=== PATIENT | male | born 1960 | race Caucasian/White ===

== ENCOUNTER 2020-10-13 16:10 | Emergency (ER) | payer OTHER, SELFPAY ==
[2020-10-13 16:14] VITALS: BP 137/83; PULSE 83; RESP 16; TEMP 36.7; O2SAT 97; BMI 33.9
[2020-10-13] MEDS: cephALEXin 500 MG CAPSULE PO (16:44)
--- NOTE | 2020-10-13 17:05 | ED.SKABFB ---
HPI - Skin/Abscess/Foreign Bdy General Chief complaint: Skin/Abscess/Foreign Body Stated complaint: abscess Time Seen by Provider: 10/13/20 16:33 History of Present Illness HPI narrative: Patient complains of red bump on his forehead which is mildly painful when he touches it, no fever no chills no other rash Related Data Previous Rx's Medication Instructions Recorded cephalexin 500 mg tablet 500 mg PO QID 7 Days #28 tab 10/13/20 Allergies Allergy/AdvReac Type Severity Reaction Status Date / Time benzonatate Allergy Unknown Verified 10/13/20 16:20 [From Tessalon Perles] clarithromycin [From Biaxin] Allergy Itching Verified 10/13/20 16:20 latex Allergy Unknown Verified 10/13/20 16:20 Review of Systems Review of Systems: Positive for small red swollen area on the scalp Negatives no fever no chills no dizziness no weakness no headache no ear pain no red eye no discharge from eye no neck pain no throat swelling no difficulty breathing or swallowing no shortness of breath Yes all other systems are reviewed and are negative PMFSH Past Medical History Source: nursing notes reviewed Medical History (Updated 10/13/20 @ 16:36 by FIFI Aguilera) Diabetes 1.5, managed as type 2 Diabetic neuropathy Hypercholesteremia Hypertension Social History Social History Advance Directives: No Advance Directives Information Provided: No Physical Exam Vital Signs: Vital Signs: Last Vital Signs Temp 98.0 F 10/13/20 16:14 Pulse 83 10/13/20 16:14 Resp 16 10/13/20 16:14 BP 137/83 10/13/20 16:14 Pulse Ox 97 10/13/20 16:14 Body Mass Index 33.9 General appearance no distress The scalp exam there is slightly larger than quarter-sized area of redness and induration there is no tenderness no fluctuance no discharge it is not consistent with an abscess The pharynx is clear Neck is supple Respiratory no distress Skin no other rashes Extremities full range of motion x4 Course Course Course Narrative: The small red indurated area on the scalp which is not tender could be a bug bite, could be early abscess could be an early cellulitis so I treated with antibiotic at this point there is nothing to drain and patient was discharged Discharge Plan Discharge Clinical Impression: Cellulitis Patient Disposition: Home, Self-Care Additional Instructions: The red bump on her scalp could be an insect bite or cellulitis, the skin felt thickened but there was no abscess nothing I could drain at this point If it is an early abscess you will know it because it will get more swollen and it will become painful Return any time for spreading redness worse pain and swelling fever any worse condition or any concerns Return for recheck at her doctor's or with us in 3-4 days if not better Take probiotics available [id number] at any pharmacy in the vitamin section to help prevent antibiotic associated diarrhea Prescriptions: New cephalexin 500 mg tablet 500 mg PO QID 7 Days Qty: 28 RF: 0
== END 2020-10-13 17:13 | disposition home or self-care (01) ==
PROVIDERS: Emergency Provider Emergency Medicine; PCP Internal Medicine
DX: L03.811 Cellulitis of head [any part, except face] (principal); E11.9 Type 2 diabetes mellitus without complications; I10 Essential (primary) hypertension; E78.5 Hyperlipidemia, unspecified
CPT/HCPCS: 99283

== ENCOUNTER → 2021-09-11 13:26 | Outpatient (BNVA) | payer OTHER, SELFPAY | PROVIDERS: PCP Internal Medicine; Visit Provider Nurse Practitioner Family | DX: R10.32 Left lower quadrant pain (principal); G89.29 Other chronic pain; M25.561 Pain in right knee; M25.562 Pain in left knee; E11.40 Type 2 diabetes mellitus with diabetic neuropathy, unspecified; M47.816 Spondylosis without myelopathy or radiculopathy, lumbar region | CPT/HCPCS: 99202 ==

== ENCOUNTER 2022-10-29 06:09 | Emergency (ER) | payer OTHER, SELFPAY ==
--- NOTE | ~2022-10-29 | US_ITS ---
EXAMINATION: US VENOUS ULTRASOUND WITH DOPPLER LOWER EXTREMITY, LEFT CLINICAL INFORMATION: Left leg swelling and pain. COMPARISON: None available. TECHNIQUE: Ultrasound of the deep veins is performed from the hip to the calf with compression sonography and color and pulse Doppler assessment. Spectral analysis with color-flow imaging is performed. FINDINGS: There is normal venous compression and respiratory variation and augmented flow. The visualized common femoral vein, superficial femoral vein, profunda femoral vein, popliteal vein, and the trifurcation region shows no evidence of deep venous thrombosis. There is no significant popliteal fossa cyst. If the patient's symptoms persist, followup ultrasound in 5 days 7 days might be of value to exclude proximal propagation from a non-visualized calf vein. US/US venous duplex LE LT IMPRESSION: No evidence for deep venous thrombosis in the visualized veins of the left lower extremity.
[2022-10-29 06:31] VITALS: BP 193/87; PULSE 79; RESP 18; TEMP 36.8; O2SAT 98; BMI 31.2
[2022-10-29 07:24] VITALS: BP 194/73; PULSE 74; RESP 18; TEMP 36.7; O2SAT 98
--- NOTE | 2022-10-29 07:26 | ED_ITS ---
HPI - Extremity Injury (Lower) General Chief Complaint: Extremity Injury, Lower Stated Complaint: left leg pain/swelling Time Seen by Provider: 10/29/22 07:14 Source: patient Mode of arrival: ambulatory Limitations: no limitations History of Present Illness HPI Narrative: 62 yo male with PMHx of lumbar spondylosis, DM, diabetic neuropathy, HTN, HDL and arthritis who presents to the ED with complaints of left LE pain/ tingling/ burning and swelling x months, worsening over the last week. Reports pain is worse along the lateral aspect of his left leg/ foot and makes sleeping difficult. Additionally states rafy this left lower leg has looked more swollen. Ambulating independently. He's followed with his PCP for this who has previously prescribed gabapentin and cymbalta however he is no longer taking these med ications. Has taken tramadol in the past which helps his pain. He recieved a referral for [facility] however has not yet received a call from them. No recent falls. Denies injury, trauma, recent surgery or travel, back or neck pain, chest pain or SOB. Not on AC. No VTE hx. Related Data Home Medications Medication Instructions Recorded Confirmed amlodipine 5 mg tablet 5 mg PO DAILY 09/11/21 09/11/21 ascorbic acid (vitamin C) 500 mg mg PO 09/11/21 09/11/21 capsule aspirin 81 mg tablet,delayed 81 mg PO DAILY 09/11/21 09/11/21 release (Adult Aspirin Regimen) atorvastatin 40 mg tablet 40 mg PO DAILY 09/11/21 09/11/21 cholecalciferol (vitamin D3) 125 125 mcg PO DAILY 09/11/21 09/11/21 mcg (5,000 unit) tablet cyanocobalamin (vitamin B-12) 1,000 mcg PO DAILY 09/11/21 09/11/21 1,000 mcg capsule dulaglutide 0.75 mg/0.5 mL mg subcut QWEEK 09/11/21 09/11/21 subcutaneous [facility] glipizide 5 mg tablet, extended 20 mg PO DAILY 09/11/21 09/11/21 release 24 hr ibuprofen 800 mg tablet 800 mg PO Q8H PRN pain 09/11/21 09/11/21 insulin glargine 100 unit/mL (3 26 unit subcut DAILY 07/13/22 07/13/22 mL) subcutaneous pen (Lantus Solostar U-100 Insulin) irbesartan 300 mg tablet 300 mg PO DAILY 09/11/21 09/11/21 metformin 500 mg tablet,extended 1,000 mg PO QPM 09/11/21 09/11/21 release 24 hr metoprolol tartrate 25 mg tablet 25 mg PO BID 09/11/21 09/11/21 omega 0-ghn-pvs-fish oil 1,200 mg cap PO 09/11/21 09/11/21 (144 mg-216 mg) capsule (Fish Oil) omeprazole 40 mg capsule,delayed 40 mg PO DAILY 09/11/21 09/11/21 release pyridoxine (vitamin B6) 100 mg 100 mg PO DAILY 09/11/21 09/11/21 tablet sildenafil 100 mg tablet 0 mg PO 09/11/21 09/11/21 tamsulosin 0.4 mg capsule 0.4 mg PO BID 09/11/21 09/11/21 Previous Rx's Medication Instructions Recorded tramadol 50 mg tablet 50 mg PO Q12H #6 tabs 10/29/22 Allergies Allergy/AdvReac Type Severity Reaction Status Date / Time benzonatate Allergy Unknown Verified 09/11/21 13:33 [From Machelle Caldwell] clarithromycin [From Biaxin] Allergy Itching Verified 09/11/21 13:33 latex Allergy Unknown Verified 09/11/21 13:33 Review of Systems Review of Systems: Constitutional : No Weight loss, No Fever, No Chills ENT/Mouth : No sore throat, No Rhinorrhea Eyes: No Eye Pain, No Swelling, No Redness Cardiovascular : No Chest Pain, No SOB, No Dyspnea on Exertion, No Orthopnea Respiratory : No Cough, No Sputum, No Wheezing Gastrointestinal : No Nausea, No Vomiting, No Diarrhea, No Constipation, No abdominal pain Genitourinary : No Dysuria, No Urinary Frequency, No Hematuria, Musculoskeletal : No joint pain, No Myalgias, No Joint Swelling, + left leg pain/ swelling Skin : No Skin Lesions, No rash Neuro : No Weakness, No Numbness, No Dizziness, No Headache Psych : No Anxiety/Panic, No Depression All other systems reviewed and are negative Yes all other systems are reviewed and are negative [facility] [place] Past Medical History Attestation statement: The following information was validated with the patient. Source: old records reviewed and nursing notes reviewed Medical History Diabetes 1.5, managed as type 2 Diabetic neuropathy Hypercholesteremia Hypertension Social History Social History Advance Directives: No Physical Exam Vital Signs: Vital Signs: Last Vital Signs Temp 98.0 F 10/29/22 07:24 Pulse 74 10/29/22 07:24 Resp 18 10/29/22 07:24 BP 194/73 H 10/29/22 07:24 Pulse Ox 98 10/29/22 07:24 O2 Del Method Room Air 10/29/22 07:24 BMI result Body Mass Index 31.2 VSS Appearance: Alert. Oriented X3. No acute distress. ? No accessory muscle use Head: Normal external exam. Normocephalic. Atraumatic. ? Eyes: PERRLA. EOMI. Conjunctiva and sclera normal. Eyelids normal. ? CVS: ?Heart regular rate and rhythm no murmurs and rubs Respiratory: ?Breath sounds are clear to auscultation bilaterally. No wheezing or stridor.? No accessory muscle use noted. Abdomen: ?Soft nontender no rebound or guarding positive bowel sounds Skin: Skin warm and dry.? Normal skin color.? Normal skin turgor. No rashes/lesions/lacerations noted. Extremities: 1+ pitting edema to LLE. Extremities exhibit normal range of motion.? Extremities nontender. Negative lulu's sign. Neuro: Oriented X 3.? No motor deficit.? No sensory deficit.? Reflexes normal Course Reevaluation(s) Reevaluation #1: CBC without acute infection or anemia. Chemistry without acute electrolyte abnormalities requiring intervention. PT/INR within normal limits. [facility] currently down. I personally recieved hard copy of LLE doppler read which returned negative for DVT. On reevaluation, patient's discomfort unchanged. Discussed negative lab and imaging workup and need for follow up with PCP and provided patient referral for [facility] pain management. Will send patient home with script for tramadol in the mean time. Patient agreeable with plan. Stable for discharge. Time: 08:28 Medical Decision Making Medical Decision Making [facility] Narrative: [id number] 62 yo male presents with LLE pain Physical exam significant for 1+ pitting edema from knee down, normal pulses, negative lulu sign Likely neuropathy vs DVT. Unlikely arterial occlusion, osteoarthritis, fx/dislocation, compartment syndrome, NV compromise or threat to limb. Plan: basic labs Differential Diagnosis Differential Diagnoses: The differential diagnosis associated with the presentation includes Likely neuropathy vs DVT. Unlikely arterial occlusion, osteoarthritis, fx/dislocation, compartment syndrome, NV compromise or threat to limb. Lab Data MDM Lab Attestation statement: I reviewed the patient's lab results. See course. 10/29/22 07:43 10/29/22 07:43 Labs: Lab Results 10/29/22 10/29/22 10/29/22 Range/Units 07:43 07:43 07:43 WBC 11.3 H (4.8-10.8) X10*3/uL RBC 4.47 L (4.60-5.80) X10*6/uL Hgb 14.3 (14.0-18.0) g/dl Hct 40.4 L (42.0-52.0) % MCV 90.4 (80.0-98.0) fL MCH 32.0 (27.0-33.0) pg MCHC 35.4 (31.0-36.0) g/dl RDW 12.2 (11.0-16.0) % Plt Count 228 (160-400) X10*3/uL MPV 9.2 L (9.4-12.4) fL Immature Gran % (Auto) 0.3 (0.0-0.4) % Neut % (Auto) 57.9 (45-73) % Lymph % (Auto) 31.7 (20-40) % [place] % (Auto) 8.1 (2-11) % Eos % (Auto) 1.6 (0-4) % Baso % (Auto) 0.4 (0-2) % Lymph # (Auto) 3.6 (1.2-4.9) X10*3/uL [place] # (Auto) 0.9 (0.1-1.2) X10*3/uL Eos # (Auto) 0.2 (0.0-0.4) X10*3/uL Baso # (Auto) 0.1 (0.0-0.2) X10*3/uL Abs Immat Gran (auto) 0.03 (0.00-0.03) X10*3/uL Absolute Neuts (auto) 6.6 (2.0-8.3) x10*3/uL Absolute Nucleated RBC 0.000 (0.0-0.012) X10*3/uL Nucleated RBC % (auto) 0.0 (0.0-0.2) /100WBC PT 11.4 (11.1-13.3) SEC INR 0.9 (0.9-1.1) Sodium 140 (135-145) mmol/L Potassium 4.7 (3.3-5.1) mmol/L Chloride 107 (96-108) mmol/L Carbon Dioxide 26 (22-29) mmol/L Anion Gap 12 (12-20) BUN 17 H (9-16) mg/dL Creatinine 0.75 (0.5-1.4) mg/dL Estim Creat Clear Calc 127.5 Estimated GFR > 60 Random Glucose 139 H (60-115) mg/dL Calcium 10.3 H (8.4-10.2) mg/dL Magnesium 1.9 (1.6-2.6) mg/dL Independent Interpretation I performed an independent interpretation of an: Ultrasound Radiology Impression Discussion of test interpretation with radiology: I have reviewed the radiologist's reading. Radiologist Impression: [facility] currently down. I personally recieved hard copy of LLE doppler read which returned negative for DVT. External Record Review External record reviewed: Inpatient record Prescription Management I considered prescription management with: Pain Medication Chronic Conditions Patient?s care impacted by: Diabetes and Hypertension Core Measures AMI core measures followed: Yes Measure exclusions: not indicated Discharge Plan Discharge Clinical Impression: Diabetic neuropathy Patient Disposition: Home, Self-Care Instructions: Diabetic Peripheral Neuropathy (ED) Additional Instructions: Take your medications as prescribed. If you were prescribed antibiotics today, it is important that you take your medication to their entirety, do not skip any doses, do not finish them early. Follow-up with your primary care provider this week. Return to the emergency department with new or worsening symptoms. In case of emergency call 911 Prescriptions: New tramadol 50 mg tablet 50 mg PO Q12H Qty: 6 0RF Rx Instructions: Patient can partially fill upon request. No Action Trulicity 0.75 mg/0.5 mL pen injector subcut QWEEK metoprolol tartrate 25 mg tablet 25 mg PO BID atorvastatin 40 mg tablet 40 mg PO DAILY ibuprofen 800 mg tablet 800 mg PO Q8H PRN (Reason: pain) metformin 500 mg tablet extended release 24 hr 1,000 mg PO QPM glipizide 5 mg tablet extended release 24hr 20 mg PO DAILY tamsulosin 0.4 mg capsule 0.4 mg PO BID insulin glargine [Lantus Solostar U-100 Insulin] 100 unit/mL (3 mL) insulin pen 26 unit subcut DAILY sildenafil 100 mg tablet 0 mg PO irbesartan 300 mg tablet 300 mg PO DAILY amlodipine 5 mg tablet 5 mg PO DAILY omeprazole 40 mg capsule,delayed release(DR/EC) 40 mg PO DAILY aspirin [Adult Aspirin Regimen] 81 mg tablet,delayed release (DR/EC) 81 mg PO DAILY omega [id number] oil [Fish Oil] 1,200 (144-216) mg capsule PO ascorbic acid (vitamin C) 500 mg capsule PO cyanocobalamin (vitamin B-12) 1,000 mcg capsule 1,000 mcg PO DAILY pyridoxine (vitamin B6) 100 mg tablet 100 mg PO DAILY cholecalciferol (vitamin D3) 125 mcg (5,000 unit) tablet 125 mcg PO DAILY Referrals: [facility] [place] [facility] [Provider Group] Doug Gutierrez MD [Primary Care Provider] - Interventions: ED Discharge Assessment Last Done: 10/29/22 08:31 Discharge Date/Time: 10/29/22 08:32
[2022-10-29 07:47] LABS: MANUAL DIFF FLAG NO
[2022-10-29 07:51] LABS: Basophils Absolute Auto 0.1 X10*3/uL (0.0-0.2); Basophils Percent Auto 0.4 % (0-2); Eosinophils Absolute Auto 0.2 X10*3/uL (0.0-0.4); Eosinophils Percent Auto 1.6 % (0-4); Hematocrit 40.4 % (42.0-52.0); Hemoglobin 14.3 g/dl (14.0-18.0); Imm Gran Abs Auto 0.03 X10*3/uL (0.00-0.03); Imm Gran Pct Auto 0.3 % (0.0-0.4); Lymphocytes Absolute Auto 3.6 X10*3/uL (1.2-4.9); Lymphocytes Percent Auto 31.7 % (20-40); Mean Corpuscular HGB Conc 35.4 g/dl (31.0-36.0); Mean Corpuscular Volume 90.4 fL (80.0-98.0); Mean Platelet Volume 9.2 fL (9.4-12.4); Monocytes Absolute Auto 0.9 X10*3/uL (0.1-1.2); Monocytes Percent Auto 8.1 % (2-11); Neutrophils Absolute Auto 6.6 x10*3/uL (2.0-8.3); Neutrophils Percent Auto 57.9 % (45-73); Platelet Count 228 X10*3/uL (160-400); Red Blood Count 4.47 X10*6/uL (4.60-5.80); Red Cell Distribution Width 12.2 % (11.0-16.0); White Blood Count 11.3 X10*3/uL (4.8-10.8)
[2022-10-29 07:53] LABS: INTERNATIONAL NORM RATIO 0.9 (0.9-1.1); Prothrombin Time 11.4 SEC (11.1-13.3)
[2022-10-29 08:01] LABS: Anion Gap 12 (12-20); Blood Urea Nitrogen 17 mg/dL (9-16); Calcium 10.3 mg/dL (8.4-10.2); Carbon Dioxide 26 mmol/L (22-29); Chloride 107 mmol/L (96-108); Creatinine Clr Calc Pharmacy 127.5; Estimated Glomerular Filt Rate > 60; Glucose Random 139 mg/dL (60-115); Magnesium 1.9 mg/dL (1.6-2.6); Potassium 4.7 mmol/L (3.3-5.1); Sodium 140 mmol/L (135-145)
== END 2022-10-29 08:32 | disposition home or self-care (01) ==
PROVIDERS: Physician Assistant; Emergency Provider Student in an Organized Health Care Education/Training Program; PCP Internal Medicine
DX: E11.40 Type 2 diabetes mellitus with diabetic neuropathy, unspecified (principal); R60.0 Localized edema; I10 Essential (primary) hypertension; E78.00 Pure hypercholesterolemia, unspecified; Z79.82 Long term (current) use of aspirin; Z79.899 Other long term (current) drug therapy; Z79.4 Long term (current) use of insulin
CPT/HCPCS: 36415; 80048; 83735; 85025; 85610; 93971; 99283; 99284

== ENCOUNTER 2023-10-11 04:22 | Emergency (ER) | payer OTHER, SELFPAY ==
[2023-10-11 04:29] VITALS: BP 183/86; PULSE 84; RESP 16; TEMP 36.6; O2SAT 98; BMI 31.2
[2023-10-11 05:06] LABS: Basophils Absolute Auto 0.1 X10*3/uL (0.0-0.2); Basophils Percent Auto 0.6 % (0-2); Eosinophils Absolute Auto 0.2 X10*3/uL (0.0-0.4); Eosinophils Percent Auto 2.2 % (0-4); Hematocrit 37.8 % (42.0-52.0); Hemoglobin 13.9 g/dl (14.0-18.0); Imm Gran Abs Auto 0.03 X10*3/uL (0.00-0.03); Imm Gran Pct Auto 0.3 % (0.0-0.4); Lymphocytes Absolute Auto 3.4 X10*3/uL (1.2-4.9); Lymphocytes Percent Auto 33.6 % (20-40); MANUAL DIFF FLAG NO; Mean Corpuscular HGB Conc 36.8 g/dl (31.0-36.0); Mean Corpuscular Hemoglobin 33.1 pg (27.0-33.0); Monocytes Absolute Auto 0.9 X10*3/uL (0.1-1.2); Monocytes Percent Auto 8.9 % (2-11); Neutrophils Absolute Auto 5.5 x10*3/uL (2.0-8.3); Neutrophils Percent Auto 54.4 % (45-73); Platelet Count 206 X10*3/uL (160-400); Red Cell Distribution Width 12.4 % (11.0-16.0); White Blood Count 10.1 X10*3/uL (4.8-10.8)
[2023-10-11 05:16] LABS: Lactic Acid 1.1 mmol/L (0.5-2.0)
[2023-10-11 05:21] LABS: Alanine Aminotransferase 19 U/L (0-40); Albumin Level 4.1 g/dL (3.5-5.0); Alkaline Phosphatase 119 U/L (39-117); Anion Gap 14 (12-20); Aspartate Amino Transferase 18 U/L (5-37); Bilirubin Total 0.4 mg/dL (0.0-1.0); Blood Urea Nitrogen 23 mg/dL (9-16); Calcium 10.1 mg/dL (8.4-10.2); Carbon Dioxide 26 mmol/L (22-29); Chloride 103 mmol/L (96-108); Creatinine Clr Calc Pharmacy 116.5; Estimated Glomerular Filt Rate > 60; Glucose Random 105 mg/dL (60-115); Potassium 3.9 mmol/L (3.3-5.1); Sodium 139 mmol/L (135-145); Total Protein 6.8 g/dL (6.5-8.0)
--- NOTE | 2023-10-11 05:22 | ED_ITS ---
HPI - Skin/Abscess/Foreign Bdy General Chief complaint: Skin/Abscess/Foreign Body Stated complaint: left leg wound/lac, diabetic Time Seen by Provider: 10/11/23 05:14 Source: patient Mode of arrival: ambulatory Limitations: no limitations History of Present Illness ED Provider: DR. Rob HPI narrative: 63-year-old pleasant male with history of uncontrolled diabetes A1c 7.5-8 scrapped his left chin about a week ago, patient is concerned because it is not healing and started to get red and soreness round the wound. Has no fever, no chills, no drainage. Related Data Home Medications ?Medication ?Instructions ?Recorded ?Confirmed amlodipine 5 mg tablet 5 mg PO DAILY 09/11/21 09/11/21 ascorbic acid (vitamin C) 500 mg mg PO 09/11/21 09/11/21 capsule aspirin 81 mg tablet,delayed 81 mg PO DAILY 09/11/21 09/11/21 release (Adult Aspirin Regimen) atorvastatin 40 mg tablet 40 mg PO DAILY 09/11/21 09/11/21 cholecalciferol (vitamin D3) 125 125 mcg PO DAILY 09/11/21 09/11/21 mcg (5,000 unit) tablet cyanocobalamin (vitamin B-12) 1,000 mcg PO DAILY 09/11/21 09/11/21 1,000 mcg capsule dulaglutide 0.75 mg/0.5 mL mg subcut QWEEK 09/11/21 09/11/21 subcutaneous pen injector (Trulicity) glipizide 5 mg tablet, extended 20 mg PO DAILY 09/11/21 09/11/21 release 24 hr ibuprofen 800 mg tablet 800 mg PO Q8H PRN pain 09/11/21 09/11/21 insulin glargine 100 unit/mL (3 26 unit subcut DAILY 09/11/21 09/11/21 mL) subcutaneous pen (Lantus Solostar U-100 Insulin) irbesartan 300 mg tablet 300 mg PO DAILY 09/11/21 09/11/21 metformin 500 mg tablet,extended 1,000 mg PO QPM 09/11/21 09/11/21 release 24 hr metoprolol tartrate 25 mg tablet 25 mg PO BID 09/11/21 09/11/21 omega [id number]-[id number]-fish oil 1,200 mg cap PO 09/11/21 09/11/21 (144 mg-216 mg) capsule (Fish Oil) omeprazole 40 mg capsule,delayed 40 mg PO DAILY 09/11/21 09/11/21 release pyridoxine (vitamin B6) 100 mg 100 mg PO DAILY 09/11/21 09/11/21 tablet sildenafil 100 mg tablet 0 mg PO 09/11/21 09/11/21 tamsulosin 0.4 mg capsule 0.4 mg PO BID 09/11/21 09/11/21 Previous Rx's ?Medication ?Instructions ?Recorded tramadol 50 mg tablet 50 mg PO Q12H #6 tabs 10/29/22 doxycycline hyclate 100 mg tablet 100 mg PO BID #14 tabs 10/11/23 Allergies Allergy/AdvReac Type Severity Reaction Status Date / Time benzonatate Allergy Unknown Verified 10/11/23 04:29 [From Tessalon Perles] clarithromycin [From Biaxin] Allergy Itching Verified 10/11/23 04:29 latex Allergy Unknown Verified 10/11/23 04:29 Review of Systems 2 Review of Systems: All other systems are reviewed and are negative Constitutional: Reports as per HPI and Reports no additional constitutional complaints Eyes: Reports as per HPI and Reports no additional eye complaints Reports system reviewed and no additional complaints, except as documented Cardiovascular: Reports as per HPI and Reports no additional cardiovascular complaints Respiratory: Reports as per HPI and Reports no additional respiratory complaints Gastrointestinal: Reports as per HPI and Reports no additional gastrointestinal complaints Genitourinary: Reports no additional female genitourinary complaints Musculoskeletal: Reports no additional musculoskeletal complaints Skin/Breast: Reports system reviewed and no additional complaints, except as docu Psychiatric: Reports no additional psychiatric complaints Endocrine: Reports no additional endocrine complaints Hematologic/Lymphatic: Reports no additional hematologic/lymphatic complaints Allergic/Immunologic: Reports no additional allergic/immunologic complaints Reports system reviewed and no additional complaints, except as documented and Reports Abnormal speech present [facility] Past Medical History Medical History Hypercholesteremia Diabetic neuropathy Diabetes 1.5, managed as type 2 Hypertension Social History Social History Advance Directives: No Advance Directives Information Provided: No Do you have a plan to hurt others: No Plan Physical Exam 2 Vital Signs: Vital Signs: Last Vital Signs Temp 97.7 F 08/11/24 05:48 Pulse 78 10/11/23 05:48 Resp 18 10/11/23 05:48 BP 172/78 H 10/11/23 05:48 Pulse Ox 98 10/11/23 05:48 O2 Del Method Room Air 10/11/23 05:48 BMI result Body Mass Index 31.2 Vital signs have been reviewed and appear to be correct. Blood pressure elevated. Heart rate normal. Respiratory rate normal. Temperature normal. Oxygen saturation normal. Appearance: Alert. Oriented X3. No acute distress. Head: Normal external exam. Normocephalic. Atraumatic. No Joshi signs noted. No raccoon eyes noted Eyes: PERRLA. EOMI. Conjunctiva and sclera normal. Eyelids normal. ENT: TM's Normal. Pharynx normal. Uvula midline. Moist mucous membranes. No trismus noted. No drooling noted. No muffled voice noted. Neck: Normal inspection. Neck supple. FROM. No adenopathy. Thyroid Normal. No meningeal signs. No neck mass noted. CVS: Normal heart rate and rhythm. Heart sound normal. No murmurs noted. Pulses normal throughout. Respiratory: No respiratory distress. Painless inspiration. Breath sounds normal. No wheezes/rales/rhonchi noted. Chest nontender. No accessory muscle usage noted or decreased air movement noted. Abdomen: Soft and nontender. Bowel sounds normal in all 4 quadrants. No distention noted. No organomegaly noted. No visible injury noted. Back: No CVA tenderness. Full range of motion noted. Skin: Skin warm and dry. Normal skin color. Normal skin turgor. No rashes/lesions/lacerations noted. Extremities: 2 x 2 cm area of ulcerative wound on the left ann, surrounded by redness and hotness, no fluctuation, no discharge Neuro: Oriented X 3. Cranial nerve exam: II-XII are grossly intact No motor deficit. No sensory deficit. Reflexes normal. Course Reevaluation(s) Reevaluation #1: On healing ulcerative wound on the left chin with surrounding cellulitis, unremarkable labs, no sepsis or septic shock. Start on doxycycline and follow-up with wound clinic. History of hypertension blood pressure is high in the emergency department patient is asymptomatic on amlodipine, metoprolol for blood pressure did not take his medication this morning. Time: 07:00 Medications Administered Generic Name Dose Route Start Last Admin Trade Name Garrick PRN Reason Stop Dose Admin Doxycycline Hyclate 100 mg/ 250 mls @ 166.67 mls/hr 10/11/23 05:14 10/11/23 05:56 Sodium Chloride IV 10/11/23 06:43 166.67 mls/hr ONCE ONE Administration Medical Decision Making Differential Diagnosis Differential Diagnoses: The differential diagnosis associated with the presentation includes (Sepsis, septic shock, bacteremia, electrolyte derangement, severe anemia.) Admission/Observation Consideration of admission/observation: Escalation of care including admission/observation considered Lab Data MDM Lab Attestation statement: I reviewed the patient's lab results. 10/11/23 05:01 10/11/23 05:01 Labs: Lab Results 10/11/23 Range/Units 05:01 WBC 10.1 (4.8-10.8) X10*3/uL RBC 4.20 L (4.60-5.80) X10*6/uL Hgb 13.9 L (14.0-18.0) g/dl Hct 37.8 L (42.0-52.0) % MCV 90.0 (80.0-98.0) fL MCH 33.1 H (27.0-33.0) pg MCHC 36.8 H (31.0-36.0) g/dl RDW 12.4 (11.0-16.0) % Plt Count 206 (160-400) X10*3/uL MPV 9.0 L (9.4-12.4) fL Immature Gran % (Auto) 0.3 (0.0-0.4) % Neut % (Auto) 54.4 (45-73) % Lymph % (Auto) 33.6 (20-40) % Kinney % (Auto) 8.9 (2-11) % Eos % (Auto) 2.2 (0-4) % Baso % (Auto) 0.6 (0-2) % Lymph # (Auto) 3.4 (1.2-4.9) X10*3/uL Kinney # (Auto) 0.9 (0.1-1.2) X10*3/uL Eos # (Auto) 0.2 (0.0-0.4) X10*3/uL Baso # (Auto) 0.1 (0.0-0.2) X10*3/uL Abs Immat Gran (auto) 0.03 (0.00-0.03) X10*3/uL Absolute Neuts (auto) 5.5 (2.0-8.3) x10*3/uL Absolute Nucleated RBC 0.000 (0.0-0.012) X10*3/uL Nucleated RBC % (auto) 0.0 (0.0-0.2) /100WBC Sodium 139 (135-145) mmol/L Potassium 3.9 (3.3-5.1) mmol/L Chloride 103 (96-108) mmol/L Carbon Dioxide 26 (22-29) mmol/L Anion Gap 14 (12-20) BUN 23 H (9-16) mg/dL Creatinine 0.81 (0.5-1.4) mg/dL Estim Creat Clear Calc 116.5 Estimated GFR > 60 Random Glucose 105 (60-115) mg/dL Lactic Acid 1.1 (0.5-2.0) mmol/L Calcium 10.1 (8.4-10.2) mg/dL Total Bilirubin 0.4 (0.0-1.0) mg/dL AST 18 (5-37) U/L ALT 19 (0-40) U/L Alkaline Phosphatase 119 H (39-117) U/L Total Protein 6.8 (6.5-8.0) g/dL Albumin 4.1 (3.5-5.0) g/dL Chronic Conditions Patient?s care impacted by: Diabetes Discharge Plan Discharge Clinical Impression: Cellulitis of left leg Patient Disposition: Home, Self-Care Instructions: Cellulitis (ED) Additional Instructions: Follow-up with the wound clinic in 5-7 days, call [phone] [place] [address], [place] [phone]. to make an Prescriptions: New doxycycline hyclate 100 mg tablet 100 mg PO BID Qty: 14 0RF No Action tramadol 50 mg tablet 50 mg PO Q12H Qty: 6 0RF Rx Instructions: Patient can partially fill upon request. Trulicity 0.75 mg/0.5 mL pen injector subcut QWEEK metoprolol tartrate 25 mg tablet 25 mg PO BID atorvastatin 40 mg tablet 40 mg PO DAILY ibuprofen 800 mg tablet 800 mg PO Q8H PRN (Reason: pain) metformin 500 mg tablet extended release 24 hr 1,000 mg PO QPM glipizide 5 mg tablet extended release 24hr 20 mg PO DAILY tamsulosin 0.4 mg capsule 0.4 mg PO BID insulin glargine [Lantus Solostar U-100 Insulin] 100 unit/mL (3 mL) insulin pen 26 unit subcut DAILY sildenafil 100 mg tablet 0 mg PO irbesartan 300 mg tablet 300 mg PO DAILY amlodipine 5 mg tablet 5 mg PO DAILY omeprazole 40 mg capsule,delayed release(DR/EC) 40 mg PO DAILY aspirin [Adult Aspirin Regimen] 81 mg tablet,delayed release (DR/EC) 81 mg PO DAILY omega [id number]-fish oil [Fish Oil] 1,200 (144-216) mg capsule PO ascorbic acid (vitamin C) 500 mg capsule PO cyanocobalamin (vitamin B-12) 1,000 mcg capsule 1,000 mcg PO DAILY pyridoxine (vitamin B6) 100 mg tablet 100 mg PO DAILY cholecalciferol (vitamin D3) 125 mcg (5,000 unit) tablet 125 mcg PO DAILY Print Language: Italian
[2023-10-11 05:48] VITALS: BP 172/78; PULSE 78; RESP 18; TEMP 36.5; O2SAT 98
[2023-10-11] MEDS: Doxycycline Hyclate 100 MG in 0.9 % Sodium Chloride 250 ML 166.67 MG IV (05:56)
--- NOTE | 2023-10-11 06:06 | PC.NURSE ---
#20 IV placed in L-AC, 1st set of BC drawn. 2nd set drawn by tech. IV abx hung. Pt BP elevated. Pt did not take scheduled BP meds. Discussed with and verbal orders given to add medication.
[2023-10-11 06:52] VITALS: BP 172/78; PULSE 75
[2023-10-11] MEDS: Tamsulosin HCL 0.4 MG CAPSULE PO (06:52)
[2023-10-11] MEDS: Metoprolol Tartrate 25 MG TABLET PO (06:52)
[2023-10-11 07:23] VITALS: BP 132/53; PULSE 67; RESP 17; TEMP 36.4; O2SAT 99
[2023-10-11 07:58] VITALS: BP 132/53; PULSE 67; RESP 17; TEMP 36.4; O2SAT 99
== END 2023-10-11 07:30 | disposition home or self-care (01) ==
PROVIDERS: Emergency Provider Emergency Medicine; PCP Internal Medicine
DX: L03.116 Cellulitis of left lower limb (principal); E13.9 Other specified diabetes mellitus without complications; Z79.4 Long term (current) use of insulin; Z79.899 Other long term (current) drug therapy
CPT/HCPCS: 36415; 80053; 83605; 85025; 87040; 96365; 99283; 99284